=== PATIENT | female | born 1945 | race Caucasian/White ===

== ENCOUNTER 2019-03-04 15:24 | Emergency (ER) | payer MEDICARE ==
[~2019-03-04] VITALS: Ht 157.5 cm; Wt 66.2 kg
[2019-03-04 16:59] VITALS: BP 122/79
== END 2019-03-04 17:31 | disposition home or self-care (01) ==
LOC: ER 15:34
DX: L25.9 Unspecified contact dermatitis, unspecified cause (principal)